=== PATIENT | male | born 1960 | race Caucasian/White ===

== ENCOUNTER 2022-04-29 01:40 | Day surgery (SDC) | payer BC, SELFPAY ==
[2022-04-22 15:08] VITALS: BMI 29.4
--- NOTE | 2022-04-22 15:20 | SUR.PREOP ---
Report to the Outpatient Waiting Room, entrance under the green pavilion located off [facility], at time 0600 on date 04/29/2022. Planned Procedure Time: 0730. Time changes happen often and if your time is changed the preop area will call you the afternoon before. - You and your visitor will be asked to self-screen and do not enter if you have any COVID symptoms. - We encourage only one visitor and NO visitors under age 16 are allowed at this time. Your visitor will receive communication by the phone number that is given day of service. - The patient visitor is requested to social distance or may leave the building when not with patient due to restrictions. Patients may have clear liquids (water, carbonated beverages, clear teas, apple juice) until 3 hours prior to surgery with a maximum of 20 ounces- 0430. - No food from midnight until time of surgery - Infants may have breast milk until 4 hours before surgery, infant formula 6 hours prior to surgery. - Children will be allowed to drink immediately following surgery. If applicable, please bring a bottle or sippy cup to assist with drinking. Juice, water, soda, and popsicles are readily available. For infants on formula, please bring formula the day of surgery. Pacifiers are allowed. Take the following medications with a SIP of water the morning of surgery: NONE Medications to discontinue per physician NONE Date to take last dose NONE Please no make-up, nail libyan, hairspray, perfume, deodorant, or body powder the day of surgery. No jewelry (including any body piercings) or valuables the day of surgery, leave them at home. Please take a shower or bath the night before, or the morning of, surgery with an antibacterial soap. Wear comfortable, loose fitting clothing. Children are encouraged to wear pajamas. - Jewelry must be removed prior to entering the operating room. Rings and piercings that are not removed may be cut off. - The hospital will not accept responsibility for valuables. - Please leave all valuables, including medications, at home the day of surgery. If you are going home after surgery, a licensed jitney driver must drive you home. - NO public transportation without another adult. - We recommend that an adult stay with you for 24 hours following discharge. - We also recommend that you do not drive, make important decision, drink alcoholic beverages, or take any drugs that were not prescribed by your health care provider for at least 24 hours after your discharge time. For Pediatric surgeries, we recommend two adults accompany the child home. Follow any additional instructions given to you from your surgeon. If you or anyone in your household have experienced Covid symptoms in the past week, please notify your surgeon or the nurse liaison at the phone number below for possible testing. Telephone instructions given to ____Patient-Titiitzel and asked if any additional questions and then verbalized understanding. Patient advised to call surgeon office or pre surgery nurse liaison [phone] if any additional questions.
[2022-04-29] MEDS: ACETAMINOPHEN 500 MG TABLET 1000 MG PO (06:08)
[2022-04-29 06:13] VITALS: BP 126/84; PULSE 73; RESP 16; TEMP 36.3; O2SAT 99
--- NOTE | 2022-04-29 06:30 | P.PNAN_ITS ---
Anes - Initial Pre Proc Eval Procedure: Operation Date: 04/29/22 07:30 Proposed Procedures p Right Inguinal Hernia Repair - Tee Yip MD Date/Time: 04/29/22 06:30 Surgeon: Tee Yip MD Pre Op Diagnosis: Right inguinal hernia Patient Data Age: 61 Gender: M Height: 1.91 m Weight: 104.9 kg Last Vital Signs Temp 36.3 C L 04/29/22 06:13 Pulse 73 04/29/22 06:13 Resp 16 04/29/22 06:13 BP 126/84 04/29/22 06:13 Pulse Ox 99 04/29/22 06:13 O2 Del Method Room Air 04/29/22 06:13 Allergies Allergy/AdvReac Type Severity Reaction Status Date / Time simvastatin Allergy Mild Hives Verified 04/29/22 06:03 Home Medications Medication Instructions Recorded Confirmed Type pravastatin 40 mg tablet 40 mg PO DAILY #90 tabs 02/02/22 04/22/22 Rx Patient hx anesthesia problems: none Family hx anesthesia problems: none Results Review: All pre-operative results and documents have been reviewed as part of the pre- operative evaluation. [facility] Past Medical History Medical History History of lung cancer History of melanoma Lung tumor Surgical History Surgical History History of lung surgery History of melanoma excision Family History Family History Sibling Patient's sister is in good health Father Family history of cardiovascular disease Social History Social History Smoking packs per day: 2 Smoking cigarettes per day: 40.0 Years smoked: 30 Smoking pack-years: 60.00 Smoking status: Former smoker Tobacco type: cigarettes and cigars Second hand tobacco smoke exposure: No Smoking end date: 07/29/18 Alcohol intake: current Drinks per week: 12 Living arrangements: alone Spiritual care concerns: No Anes - Eval Final PreProcedure Day of Procedure 04/29/22 06:30 Patient weight: overweight Heart: regular rate and rhythm Lungs: clear to auscultation Airway: Mallampati scale class II Neurological: alert and oriented Last oral intake: >/= 8 hours ASA classification: III Emergent: no Anesthetic plan: proceed Anesthesia type and monitoring: general GIVS and standard monitoring Results Review: All pre-operative results and documents have been reviewed as part of the pre- operative evaluation. Informed Consent: The patient's anesthetic plan and its attendant risks and benefits were discussed with the patient/family/POA. Questions were solicited and answers provided to the satisfaction of the patient/family/POA.
--- NOTE | 2022-04-29 06:33 | PM.SD2 ---
Same Day Admit/Disch: HPI History of Present Illness Chief complaint: Right inguinal hernia Narrative: Tru Travis is a 61 year old male With a a right inguinal bulge for at least 3 years. It has gotten uncomfortable. He is seen in the office and found to have a right inguinal hernia. He is taken to surgery now for repair as an outpatient under anesthesia. COUNT INCLUDES THE [facility] Past Medical History Medical History History of lung cancer History of melanoma Lung tumor Surgical History Surgical History History of lung surgery History of melanoma excision Family History Family History Sibling Patient's sister is in good health Father Family history of cardiovascular disease Social History Social History Smoking packs per day: 2 Smoking cigarettes per day: 40.0 Years smoked: 30 Smoking pack-years: 60.00 Smoking status: Former smoker Tobacco type: cigarettes and cigars Second hand tobacco smoke exposure: No Smoking end date: 07/29/18 Alcohol intake: current Drinks per week: 12 Living arrangements: alone Spiritual care concerns: No Same Day Admit/Disch: Med Pre-admit Medications Home Medications Medication Instructions Recorded Confirmed Type pravastatin 40 mg tablet 40 mg PO DAILY #90 tabs 02/02/22 04/22/22 Rx hydrocodone 5 mg-acetaminophen 325 1 - 2 tablet PO Q6H PRN pain #7 04/29/22 Rx mg tablet tabs ketorolac 10 mg tablet 10 mg PO Q6H 4 days #16 tabs 04/29/22 Rx Exam Const: General: comfortable, no acute distress, alert and awake HENMT: Head: normocephalic and atraumatic Mouth: Yes Normal oral and palatal mucosa present Eyes: Conjunctivae: conjunctivae normal Pupils: Equal, round and reactive pupils present EOM: EOMs intact bilaterally Neck: Neck: normal visual inspection, no lymphadenopathy and nontender Resp: Effort & Inspection: normal respiratory effort Auscultation: clear to auscultation bilaterally Cardio: Rate: regular rate Rhythm: regular rhythm Heart sounds: no gallops, no murmurs and no rubs GI: Inspection: non-distended GI Palp: Yes Soft to palpation, No Tenderness to palpation present (GI), No Hepatomegaly present and No Splenomegaly present : Male General Exam: Yes hernia ( Reducible right inguinal hernia, no left inguinal hernia) Penis: Yes normal penis Scrotum: scrotum normal Testes: Testes normal Skin: Lesions: no lesions Rashes: no rashes Neuro: General: no focal motor deficits and CN's II-XI intact bilaterally Cranial nerves: Yes Equal, round and reactive pupils present, Yes Bilaterally intact EOM present, Yes facial symmetry and Yes Midline tongue present Speech: normal speech Motor exam (neuro): 5/5 motor strength present throughout and Motor abnormalities not present Extrem: General: no clubbing, cyanosis or edema and edema Psych: Affect: normal affect Thought process: Normal thought process present Insight: Good insight present (Psych) DS: Summary Time Spent with Patient Time attestation: Total time spent providing and/or coordinating discharge services: DS: Admitting Diagnosis Discharge Date 04/29/2022 Admitting Diagnosis right inguinal hernia - plan to proceed with repair under anesthesia. The procedure the risks the benefits have been discussed. All questions were answered. The usual recovery time and the use of mesh has been discussed. He agrees to go ahead. History of lung cancer status post resection history of melanoma status post removal DS: Discharge Diagnosis Discharge Diagnosis (1) Inguinal hernia without obstruction or gangrene: Code(s): K40.90 - Unilateral inguinal hernia, without obstruction or gangrene, not specified as recurrent Status: Chronic Assessment and Plan: Mitesh
--- NOTE | 2022-04-29 06:38 | WPDHPUPDATE1 ---
History and Physical Update Update Date/Time: 04/29/22 06:38 History and Physical has been reviewed, including an updated exam of the patient. There are NO changes in the patient's condition. Risks, benefits, and alternatives have been discussed and questions answered. Patient agrees to proceed with procedure.
[2022-04-29] MEDS: KETOROLAC 15 MG/ML VIAL (*BKC) IV PUSH (06:43)
[2022-04-29] MEDS: LACTATED RINGERS 1,000 ML 30 ML IV CONT ×2 (06:43→08:34)
[2022-04-29] MEDS: ceFAZolin 2 GM/D5W 50 ML 2 GM/50 ML BAG IVPB (07:23)
[2022-04-29] MEDS: BUPIVACAINE/EPINEPHRINE 0.25% 50 ML VIAL INFILTRATE (08:24)
[2022-04-29 08:34] VITALS: BP 128/86; PULSE 73; RESP 14; O2SAT 96
--- NOTE | 2022-04-29 08:43 | W.PM.PROC2 ---
Procedure Note - Detailed Date of Procedure 04/29/22 Pre-op Diagnosis Right inguinal hernia Post-op Diagnosis Same Procedure Performed Right inguinal hernia repair with large PerFix Light plug and patch Surgeon Tee Yip MD [employer] Mikaela MICHEL Anesthesia General (G IV S), Local (0.25% Marcaine with epinephrine) and Other (Xaracoll) Indications Patient has a mildly symptomatic bulge in the right groin. He was noted on exam to have a hernia. He is taken to surgery now for repair. Findings Patient had an indirect hernia. Description of Procedure The patient was taken to surgery and anesthesia was introduced. The right groin and genitalia were prepped and draped. The proposed incision was marked on the skin. Local anesthesia was infiltrated into the skin and the deeper subcutaneous tissues. Incision was made deepened through the subcutaneous. Crossing veins were cauterized and divided. Dissection was carried down through Florentino's fascia. We continued down and exposed the external oblique aponeurosis. The external ring was exposed as well. Local was infiltrated deep to the aponeurosis in the area of the inguinal canal and its contents. The aponeurosis was then opened laterally and extended medially through the external ring. The leaves of the aponeurosis were freed from the underlying inguinal canal contents. The cord was mobilized medially on a [place] drain. The cord was then further mobilized back to the internal ring. We dissected in the anteromedial aspect of the cord. The hernia sac was found and was carefully dissected free from the cord structures. There were quite a few adhesions to the hernia sac as it was a longstanding hernia. Eventually it was dissected back to a high dissection. It was then dunked into the retroperitoneum. A large PerFix Light plug was then placed in the defect. The edges were sutured to the transversalis fascia with interrupted 3-0 Vicryl suture. A patch was then cut to the appropriate size and placed in the inguinal canal floor. The lateral leaves passed beyond the cord. First piece of Xaracoll was then laid over the patch. The cord was laid over the Xaracoll. The ileoinguinal nerve was carefully preserved for the surgery was left attached to the spermatic cord throughout. We then closed the external oblique aponeurosis with interrupted 3-0 Vicryl suture. A 2nd piece of Xaracoll was placed over the aponeurosis. Florentino's fascia was closed with interrupted 3-0 Vicryl suture. The last pieces Xaracoll was placed in the subcutaneous. The skin was loosely approximated with 4-0 Vicryl subcuticular skin suture. The skin was finally closed with a running 4-0 Monocryl skin suture. Wound was dressed with Exofin surgical adhesive. Patient was awakened and taken to recovery in good condition. Sponge and needle counts were correct x2. Implants Large PerFix Light plug and patch Estimated Blood Loss -5 Drains No Packing No Pathology None sent Complications No immediate complications Condition Stable Disposition Same day [facility] Billing Surgery - Charge Forward: Surgery Billing (Right inguinal hernia repair)
[2022-04-29 09:00] VITALS: BP 120/70; PULSE 70; RESP 20
[2022-04-29 09:30] VITALS: BP 133/85; PULSE 68; RESP 20
[2022-04-29 09:50] VITALS: BP 130/80; PULSE 68; RESP 20
== END 2022-04-29 10:00 | disposition home or self-care (01) ==
PROVIDERS: PCP Physician Assistant; Visit Provider Surgery
PROC: (CPT 49505; principal; 2022-04-29 07:30)
DX: K40.90 Unilateral inguinal hernia, without obstruction or gangrene, not specified as recurrent (principal); Z85.118 Personal history of other malignant neoplasm of bronchus and lung; Z85.820 Personal history of malignant melanoma of skin; Z87.891 Personal history of nicotine dependence
CPT/HCPCS: 49505; A9270; C1781; J0690; J1885; J2250; J2704; J3010; J7120

== ENCOUNTER 2022-10-29 14:16 | Outpatient (CLI) | payer BC, SELFPAY ==
--- NOTE | ~2022-10-29 | XR_ITS ---
EXAM: XR knee RT 3V DATE: 10/29/2022 14:32 HISTORY: M25.461 - Effusion, right knee FOR 10 DAYS . COMPARISON: None available. FINDINGS: Normal mineralization. No fracture or dislocation. No lytic or blastic lesion. Mild medial joint space narrowing. Minimal tricompartmental osteophytosis. Large volume joint fluid. No erosion or periosteal change. Atherosclerotic vascular calcification. IMPRESSION: No acute osseous finding in the right knee. Large right knee joint effusion. Reviewed, dictated and finalized at location K.
== END 2022-10-29 14:17 | disposition home or self-care (01) ==
PROVIDERS: PCP Physician Assistant; Visit Provider Physician Assistant
DX: M25.461 Effusion, right knee (principal)
CPT/HCPCS: 73562

== ENCOUNTER 2023-08-23 15:13 | Outpatient (CLI) | payer BC, SELFPAY ==
--- NOTE | ~2023-08-23 | CT_ITS ---
Non-contrast CT scan of the Abdomen and Pelvis Clinical indication: Kidney stone Technique: 2.5 mm axial scans were obtained through the abdomen and pelvis without intravenous or or al contrast. Dose reduction technique was used on this scan by utilizing automated exposure control a nd iterative reconstruction technique. The dose-length product (DLP) was 1061.13 mGy-cm. Findings: Images through the lung bases reveal no abnormalities. There is no evidence of renal or ureteral calculi. The kidneys and the ureters are nondilated. There are at least 4 ill-defined hypodense hepatic lesions, measuring up to 2.4 cm in diameter. The s pleen, pancreas, gallbladder, and adrenals appear normal. There are atherosclerotic calcifications of the aorta. There is no evidence of bowel obstruction. Images through the pelvis were performed. There is no evidence of ascites or lymphadenopathy. Urinary bladder unremarkable. Prostate gland mildly enlarged. No ascites. Impression: At least 4 ill-defined hypodense hepatic masses, measuring up to 2.4 cm in diameter. These are suspic ious for metastatic disease until proven otherwise. If these lesions have not been previously diagnos ed/worked-up, then pre and postcontrast hepatic MR is recommended for further evaluation. Reviewed, dictated and finalized at location . FING RN Impression: At least 4 ill-defined hypodense hepatic masses, measuring up to 2.4 cm in diam eter. These are suspicious for metastatic disease until proven otherwise. If th victorina lesions have not been previously diagnosed/worked-up, then pre and postcont rast hepatic MR is recommended for further evaluation.
== END 2023-08-23 15:14 | disposition home or self-care (01) ==
LOC: ANHIMG 15:15
PROVIDERS: PCP Physician Assistant; Visit Provider Physician Assistant
DX: R10.9 Unspecified abdominal pain (principal)
CPT/HCPCS: 74176

== ENCOUNTER → 2023-08-31 11:02 | Outpatient (CLI) | payer BC, SELFPAY ==
--- NOTE | ~2023-08-31 | MR_ITS ---
EXAMINATION: MR abdomen wo/w con DATE: 08/31/2023 12:05 INDICATION: Unspecified liver disease TECHNIQUE: Magnetic resonance imaging (MRI) of the abdomen was performed without and with 20 mL Multi dank intravenous contrast. Sequences included coronal T2-weighted SS-FSE, coronal and axial FS 2D-F IESTA, axial STIR FSE, axial T2-weighted SS-FSE, axial T2-weighted FS SS-FSE, axial diffusion-weighte d SE, axial dual-echo T1-weighted FSPGR, and axial and coronal T1-weighted LAVA. Postcontrast axial T 1-weighted LAVA images were obtained in a time course. Postcontrast coronal T1-weighted LAVA images w ere obtained. COMPARISON: CT dated 08/23/2023 FINDINGS: Heart size is normal. No pericardial or pleural effusion. Mild elevation of the left hemidiaphragm. T here are couple subcentimeter T2 hyperintense fluid intensity nonenhancing cysts, one in the left and one in the right hepatic lobes. There are 6 additional scattered hepatic lesions which are T1 hyperi ntense and fat saturated imaging and T2 hyperintense of less than fluid intensity and which correspon d to the hypodense lesions on the prior CT. Assessment for enhancement is somewhat limited by the rel atively intense background T1 signal and small amount of motion making exact registration difficult o n the postcontrast subtraction imaging. There does not appear to be definitive internal enhancement o n the subtraction images although there is suggestion of a subtle peripherally enhancing halo. There does appear to be progressive central enhancement on the 5 and 10 minute delayed images. This does no t demonstrate the typical peripheral discontiguous puddling characteristic for hemangiomas. 10 mm non enhancing T2 hyperintense left renal cyst. Right kidney, bilateral adrenal glands and spleen are norm al. 7 mm low signal intensity gallstone in the dependent aspect of the otherwise normal-appearing gal lbladder. Common bile duct is normal and there is no intrahepatic biliary ductal dilation. Normal ret rocecal appendix. Visualized portions of bowels are normal. No pathologically enlarged abdominal lymp hadenopathy. There is a geographic region of significant loss of T1 hyperintense marrow fat signal an d with corresponding enhancement involving the cephalad two thirds of the T11 vertebral body. There i s also some extraosseous soft tissue enhancement and edema in the paravertebral fat surrounding the T 11 vertebral body. There is mild anterior vertebral body height loss at T11 and is unclear whether th e enhancement is related to a recent compression fracture or due to a pathologic marrow replacing pro cess. There are small T1 hyperintense hemangiomas at T10 and T12. Schmorl's node along the superior e ndplate of L5. On the coronal images there is suggestion of an additional enhancing lesion in the rig ht innominate bone along the cephalad margin of the sciatic notch. IMPRESSION: 1. 6 indeterminate enhancing hepatic lesions with a typical increased T1 signal suggesting blood, blo od products or other proteinaceous material and can also be seen in the setting of metastatic melanom a. The mild delayed enhancement would be consistent with focal nodular hyperplasia and can be seen wi th hemangioma over laxity more typical peripheral discontiguous puddling pattern seen with hemangioma . Increased T1 signal however would be atypical for both focal nodular hyperplasia and hemangioma and the conspicuity of the lesions relative to the background liver on CT would also be atypical for foc al nodular hyperplasia and could not exclude metastatic disease. Would consider ultrasound-guided per cutaneous biopsy for further evaluation. 2. Enhancement and loss of T1 fat signal involving much of the T11 vertebral body which raise concern for malignancy/metastatic disease although could also represent reactive change related to an age-in determinate compression fracture. There is suggestion however of an additional enhanc
== END ==
PROVIDERS: PCP Physician Assistant; Visit Provider Physician Assistant
DX: K76.9 Liver disease, unspecified (principal); K80.20 Calculus of gallbladder without cholecystitis without obstruction
CPT/HCPCS: 74183; A9577